=== PATIENT | male | born 1965 | race Caucasian/White ===

== ENCOUNTER 2018-12-02 16:46 | Emergency (ER) | payer BC ==
[2018-12-02] MEDS ORDERED: Fentanyl 100 MCG/2 ML VIAL ONE ×2 (16:49→16:58)
[2018-12-02] MEDS ORDERED: Adacel (T-DAP) 0.5 ML SYRINGE ONE (16:49)
[2018-12-02 17:11] LABS: #Basophils 0.1 thou/uL (0.0-0.2); #Lymphocytes 1.9 thou/uL (1.20-3.40); #Monocytes 0.7 thou/uL (0.11-0.59); #Neutrophils 4.5 thou/uL (1.40-6.50); %Basophils 1.1 % (0.0-1.0); %Eosinophils 0.5 % (0.0-10.0); %Lymphocytes 26.6 % (21.0-51.0); %Monocytes 9.2 % (0.0-10.0); %Neutrophils 62.6 % (42.0-75.0); Hemoglobin 14.9 g/dL (14.0-18.0); Mean Corpuscular HGB CONC 33.8 g/dL (32.0-36.0); Mean Corpuscular Hemoglobin 29.6 pg (27.0-31.0); Mean Corpuscular Volume 87.4 fL (78.0-98.0); Mean Platelet Volume 8.9 fL (7.4-10.4); Platelet Count 345 thou/uL (130-400); RBC Distribution Width 13.9 % (11.5-14.5); Red Blood Cell (RBC) Count 5.03 mill/uL (4.70-6.10); White Blood Cell (WBC) Count 7.1 thou/uL (4.8-10.8)
[2018-12-02] MEDS ORDERED: Acetaminophen 500 MG TAB ONE (17:18)
[2018-12-02 17:25] LABS: ALT (SGPT) 17 U/L (8-55); AST (SGOT) 24 U/L (5-34); Albumin 4.7 g/dL (3.5-5.0); Alkaline Phosphatase 125 U/L (40-150); Anion Gap 19 mmol/L (10-20); BUN (Urea Nitrogen) 17 mg/dL (8.4-25.7); Bilirubin, Total 0.9 mg/dL (0.2-1.2); Calc. Creatinine Clearance 0 mL/min (70-130); Calcium 9.6 mg/dL (7.8-10.44); Carbon Dioxide 19 mmol/L (22-29); Chloride 101 mmol/L (98-107); Estimated GFR-MDRD 53; Globulin 3.2 g/dL (2.4-3.5); Glucose 100 mg/dL (70-105); Potassium 4.1 mmol/L (3.5-5.1); Protein, Total 7.9 g/dL (6.0-8.3); Sodium 135 mmol/L (136-145)
[2018-12-02] MEDS ORDERED: Ketorolac Tromethamine 30 MG/ML VIAL ONE (17:51)
[2018-12-02] MEDS ORDERED: Morphine 4 MG/ML VIAL ONE ×2 (17:51→19:34)
== END 2018-12-02 19:50 | disposition home or self-care (01) ==
LOC: ERS 16:46
DX: T23.231A Burn of second degree of multiple right fingers (nail), not including thumb, initial encounter (principal); T20.10XA Burn of first degree of head, face, and neck, unspecified site, initial encounter; F41.9 Anxiety disorder, unspecified; F32.9 Major depressive disorder, single episode, unspecified; I10 Essential (primary) hypertension; Z79.899 Other long term (current) drug therapy; X08.8XXA Exposure to other specified smoke, fire and flames, initial encounter
CPT/HCPCS: 80053; 83605; 85025; 90471; 90715; 96361; 96374; 96375; 96376; J1885; J2270; J3010

== ENCOUNTER 2020-10-30 06:16 | Emergency (ER) | payer BC ==
[2020-10-30] MEDS ORDERED: Ketorolac Tromethamine 30 MG/ML VIAL ONE (07:24)
[2020-10-30] MEDS ORDERED: Dexamethasone 10 MG/ML VIAL ONE (07:24)
[2020-10-30] MEDS ORDERED: Albuterol 200 PUFF (6.7GM INHALER) ONE ×2 (07:24→07:28)
== END 2020-10-30 09:06 | disposition home or self-care (01) ==
LOC: ERS 06:16
DX: U07.1 COVID-19 (principal); J12.82 Pneumonia due to coronavirus disease 2019; D64.9 Anemia, unspecified; M10.9 Gout, unspecified; Z79.899 Other long term (current) drug therapy
CPT/HCPCS: 71045; 94664; 96372; J1100; J1885